=== PATIENT | male | born 1980 | race Two or more races ===

== ENCOUNTER 2019-01-29 08:18 | Emergency (ER) | payer SELFPAY ==
[~2019-01-29] VITALS: Ht 177.8 cm; Wt 74.8 kg
[2019-01-29] MEDS ORDERED: NALOXONE HCL 0.4 MG/ML AMPUL ONE (08:42)
--- NOTE | 2019-01-29 08:56 | NUR ---
LINE STARTED ON R FA G 18, BLOOD DRAWN FROM LINE AND SENT TO LAB
[2019-01-29 08:58] LABS: BASOPHILS # (AUTO) 0.1 /CMM (0.0-0.2); BASOPHILS % (AUTO) 0.9 % (0.0-2.0); EOSINOPHILS % (AUTO) 0.7 % (0.0-6.0); HEMATOCRIT 34 % (39-51); HEMOGLOBIN 10.9 g/dL (13.5-17.5); LYMPHOCYTES % (AUTO) 20.4 % (20.0-44.0); MEAN CORPUSCULAR HGB CONC 32 g/dl (31.0-36.0); MEAN CORPUSCULAR VOLUME 76 fL (80-96); MONOCYTES # (AUTO) 0.9 /CMM (0.1-1.30); MONOCYTES % (AUTO) 9.4 % (2.0-12.0); NEUTROPHILS # (AUTO) 6.6 /CMM (1.8-8.9); NEUTROPHILS % (AUTO) 68.6 % (43.0-81.0); PLATELET COUNT (AUTO) 346 /CMM (150-450); RED BLOOD CELL COUNT(AUTO) 4.47 MIL/uL (4.5-6.0); WHITE BLOOD COUNT (AUTO) 9.6 K/uL (4.3-11.0)
[2019-01-29] MEDS ORDERED: NALOXONE HCL 0.4 MG/ML AMPUL IV ONE (09:00)
[2019-01-29] MEDS ORDERED: IV NS 0.9% 1,000 ML BAG IV ONE (09:00)
[2019-01-29 09:04] LABS: CALCIUM, SERUM 9.4 mg/dL (8.5-10.1); CARBON DIOXIDE 31 mmol/L (21-32); CHLORIDE 101 mmol/L (98-107); CREATININE 0.7 mg/dL (0.6-1.3); GLUCOSE 100 mg/dL (74-106); POTASSIUM 3.8 mmol/L (3.5-5.1); SODIUM SERUM 139 mmol/L (136-145); UREA NITROGEN, BLOOD 16 mg/dL (7-18)
[2019-01-29 09:09] LABS: ALANINE AMINOTRANSFERASE 37 U/L (12-78); ALBUMIN 2.9 g/dL (3.4-5.0); ALCOHOL, BLOOD < 3 mg/dL (0-0); ALKALINE PHOSPHATASE 145 U/L (46-116); ASPARTATE AMINOTRANSFERASE 36 U/L (15-37); BILIRUBIN,DIRECT 0.1 mg/dL (0.0-0.2); BILIRUBIN,TOTAL 0.2 mg/dL (0.2-1.0); TOTAL PROTEIN, SERUM 8.2 g/dL (6.4-8.2)
--- NOTE | 2019-01-29 14:33 | NUR ---
D[facility] received a call from [employer] requesting for SW to see pt. due to homelessness. Pt. is a 38 year old male who was brought to [facility] for drug overdose. Pt. was found by bystanders yelling taking off his clothes and walking around naked in front of cars. DUTCH attempted to meet with the pt. bedside, however pt. is not responding to questioning and is unable to provide any meaningful information at this time. DUTCH to attempt to reassess pt. later this afternoon. DUTCH placed homeless resources and Homeless Waiver form for the pt. in his chart.
[2019-01-29 23:38] VITALS: BP 131/77
== END 2019-01-29 23:39 | disposition home or self-care (01) ==
LOC: ER 08:20
DX: F11.129 Opioid abuse with intoxication, unspecified (principal)
CPT/HCPCS: 36415; 80048; 80076; 80307; 85025; 96374; 99283; J2310; J7030; G0480